=== PATIENT | female | born 1960 | race Caucasian/White ===

== ENCOUNTER 2021-06-10 05:33 | Day surgery (SDC) | payer OTHER ==
[2021-06-08 12:28] LABS: BASOPHILS % (AUTO) 0 % (0-1); EOSINOPHILS % (AUTO) 1 % (1-7); LYMPHOCYTES % (AUTO) 20 % (22-44); MEAN CORPUSCULAR HEMOGLOBIN 28.6 pg (27.0-34.8); MEAN CORPUSCULAR HGB CONC 34.1 g/dL (32.4-35.8); MEAN PLATELET VOLUME 8.8 fL (7.4-10.4); MONOCYTES % (AUTO) 5 % (2-9); NEUTROPHILS % (AUTO) 75 % (42-75); PLATELET COUNT 261 x10^3/uL (130-400); RED BLOOD COUNT 4.92 x10^6/uL (3.82-5.3); RED CELL DISTRIBUTION WIDTH 13.6 % (9.6-15.2)
[2021-06-08 12:36] LABS: ANION GAP 7 mmol/L (5-15); CALCIUM 8.7 mg/dL (8.5-10.1); CHLORIDE 108 mmol/L (98-107)
[2021-06-08 12:43] LABS: MICROSCOPIC AUTO
[~2021-06-10] VITALS: Ht 157.5 cm; Wt 82.0 kg
[~2021-06-10 05:33] MED LIST: ALBU8.5H8 INH; MULT-449 PO; NATURE S BOUNTY PO; Norethindrone PO; OMEGA PO; [UNRECOGNIZED DRUG - OTHER] PO; [UNRECOGNIZED DRUG - OTHER] PO; [UNRECOGNIZED DRUG - OTHER] PO; [UNRECOGNIZED DRUG - OTHER] PO
[2021-06-10 06:07] VITALS: BP 163/100
[2021-06-10] MEDS ORDERED: LIDOCAINE-MPF 1%, 2ML ONE (06:11)
[2021-06-10] MEDS ORDERED: CHLORHEXIDINE 15 ML UDC ONE (06:11)
[2021-06-10] MEDS ORDERED: LACTATED RINGERS 1,000 ML IV SCH (06:30)
[2021-06-10] MEDS ORDERED: CHLORHEXIDINE 15 ML UDC PO ONE (06:30)
[2021-06-10] MEDS ORDERED: LIDOCAINE-MPF 1%, 2ML INFIL ONE (06:30)
[2021-06-10] MEDS ORDERED: MIDAZOLAM 1 MG/ML, 2ML ONE (06:58)
[2021-06-10] MEDS ORDERED: FENTANYL PF 100 MCG/2ML ONE (06:59)
[2021-06-10] MEDS ORDERED: DEXAMETHASONE 4 MG/ML, 1ML ONE (06:59)
[2021-06-10] MEDS ORDERED: SILVER NITRATE STICK TP ONE (07:04)
[2021-06-10] MEDS ORDERED: PROPOFOL 10 MG/ML, 20ML ONE (07:09)
[2021-06-10] MEDS ORDERED: ROCURONIUM 10 MG/ML,10ML ONE (07:09)
[2021-06-10] MEDS ORDERED: ONDANSETRON 2MG/ML, 2ML ONE (07:19)
[2021-06-10] MEDS ORDERED: PROMETHAZINE 25 MG/ML, 1ML IVPush PRN (08:00)
[2021-06-10] MEDS ORDERED: OXYcodone 5 MG/5 ML ORAL.SOL UDC PO PRN (08:00)
[2021-06-10] MEDS ORDERED: FENTANYL PF 100 MCG/2ML IV PRN (08:00)
[2021-06-10] MEDS ORDERED: hydrALAzine 20 MG/ML, 1ML IV PRN (08:00)
[2021-06-10] MEDS ORDERED: LORazepam 2 MG/ML, 1ML IVPush PRN (08:00)
[2021-06-10] MEDS ORDERED: MEPERIDINE/PF 25MG/0.5ML IVPush PRN (08:00)
[2021-06-10] MEDS ORDERED: ALBUTEROL SULFATE 2.5 MG/3 ML NPPB PRN (08:00)
[2021-06-10] MEDS ORDERED: LABETALOL 5MG/ML, 20ML IV PRN (08:00)
[2021-06-10] MEDS ORDERED: ACETAMINOPHEN 325 MG TABLET PO PRN (08:00)
[2021-06-10] MEDS ORDERED: MIDAZOLAM 1 MG/ML, 2ML IV PRN (08:00)
[2021-06-10] MEDS ORDERED: DIPHENHYDRAMINE 50 MG/ML, 1ML IVPush PRN ×2 (08:00)
[2021-06-10] MEDS ORDERED: EPHEDRINE 50 MG/ML, 1ML IVPush PRN (08:00)
[2021-06-10] MEDS ORDERED: HYDROmorphone 1 MG/ML, 1ML INJ IVPush PRN (08:00)
[2021-06-10] MEDS ORDERED: PROMETHAZINE 12.5 MG SUPP PR PRN (08:00)
[2021-06-10] MEDS ORDERED: ONDANSETRON 2MG/ML, 2ML IVPush PRN (08:00)
[2021-06-10] MEDS ORDERED: DIAZEPAM 5 MG/ML, 2ML IVPush PRN (08:00)
== END 2021-06-10 09:35 | disposition home or self-care (01) ==
LOC: OUT 05:33 → EDSTATUS 07:15 → OUT 09:35
PROVIDERS: ATTEND Obstetrics & Gynecology Gynecology
DX: N95.0 Postmenopausal bleeding (principal); N84.0 Polyp of corpus uteri; J45.909 Unspecified asthma, uncomplicated; G47.33 Obstructive sleep apnea (adult) (pediatric); E66.9 Obesity, unspecified; Z79.899 Other long term (current) drug therapy; Z83.3 Family history of diabetes mellitus; Z82.49 Family history of ischemic heart disease and other diseases of the circulatory system
CPT/HCPCS: 36415; 58558; 80048; 81001; 85025; 88305; J1100; J2250; J2405; J2704; J3010; J7120